=== PATIENT | female | born 1970 | race Caucasian/White ===

== ENCOUNTER → 2016-07-22 | Outpatient (CLI) | payer BC | END | disposition home or self-care (01) | LOC: MMGSC 13:39 | PROVIDERS: ATTEND Family Medicine | DX: E55.9 Vitamin D deficiency, unspecified (principal) | CPT/HCPCS: 36415; 82306 ==

== ENCOUNTER → 2016-11-13 | Outpatient (CLI) | payer BC | LOC: MMGSC 16:20 | PROVIDERS: ATTEND Family Medicine | DX: L30.9 Dermatitis, unspecified (principal) | CPT/HCPCS: 87070; 87075; 87205 ==